=== PATIENT | female | born 1970 | race Two or more races ===

== ENCOUNTER 2024-10-14 14:40 | Inpatient (IN) ==
--- NOTE | 2024-10-14 15:01 | Emergency Department Note ---
History of Present Illness General Chief complaint: Infection, Wound Stated complaint: POSSIBLE STAPH INFECTION, WOUND ON FOOT Time Seen by Provider: 10/14/24 14:51 History of Present Illness Maximum Pain Intensity: 1 This is a 54-year-old female who presents to the emergency department via private vehicle referred by PCP with complaints of "right first toe infection". The patient is a Thursday she developed a wound to the dorsum of the left first toe and was seen at [facility]. She was prescribed Bactrim. She has been compliant with this medication. She then followed up in yesterday was prescribed clindamycin noting continuation of symptoms. She sent a picture to the team today and was referred here noting worsening symptoms. She feels fevers. No nausea or vomiting. She denies any known drug allergies. Patient denies any history of diabetes. She has been soaking the wound in water. She also notes that her dog may have licked the wound once or twice accidentally. She has been using Aleve and Benadryl with minimal relief of her symptoms. No known trauma or injury. Home Medications Medication Instructions Recorded Confirmed Type Lactobacillus acidophilus 10 10,000 mmu cells PO DAILY 10/14/24 10/14/24 History billion cell capsule (Probiotic) bupropion HCl 150 mg tablet,12 hr 150 mg PO QAM 10/14/24 10/14/24 History sustained-release cetirizine 10 mg tablet (Zyrtec) 10 mg PO QAM 10/14/24 10/14/24 History citalopram 40 mg tablet 40 mg PO QAM 10/14/24 10/14/24 History clindamycin HCl 150 mg capsule 450 mg PO TID 10/14/24 10/14/24 History levothyroxine 150 mcg tablet 150 mcg PO DAILYBB 10/14/24 10/14/24 History methylphenidate HCl 54 mg 54 mg PO QAM 10/14/24 10/14/24 History tablet,extended release 24 hr sulfamethoxazole 800 1 tab PO AMHS 10/14/24 10/14/24 History mg-trimethoprim 160 mg tablet Allergies Allergy/AdvReac Type Severity Reaction Status Date / Time No Known Allergies Allergy Mild Unverified 10/14/24 16:31 Past Med/Surg History Problem List (Updated 10/14/24 @ 17:33 by Jag Palma PA-C) Cellulitis of left foot (Acute) Open wound of left great toe (Acute) Medical History (Updated 10/14/24 @ 17:33 by Jag Palma PA-C) IUD (intrauterine device) in place History of adenomatous polyp of colon Moderate episode of recurrent major depressive disorder Attention deficit disorder without hyperactivity Hypothyroidism Family History (Updated 10/14/24 @ 16:54 by ÁNGEL Farah) Mother Hypertension Father Colorectal cancer Grandmother (Maternal) Diabetes Grandmother (Paternal) Breast cancer Social History (Updated 10/14/24 @ 16:55 by ÁNGEL Farah) Smoking Status: Former smoker Tobacco Type: Cigarettes packs per day: 1; Smoking End Date: 1996; Do You Dip or Chew Tobacco: No; Hx Alcohol Use: Yes Hx Substance Use: No Preferred Language: Japanese Feels Safe at Home: Yes Review of Systems A total of 10 systems reviewed and were otherwise negative Physical Exam Vital Signs Vital Signs - 24 hr 10/14/24 14:47 10/14/24 15:13 10/14/24 15:13 Temperature 37.2 C Temperature Source Oral Pulse Rate 115 H Respiratory Rate 20 Respiratory Effort / Characteristics Non-Labored Spontaneous Respiratory Depth Normal Blood Pressure 151/106 H 125/87 125/87 Blood Pressure Mean 121 90 90 Pulse Oximetry 95 Oxygen Delivery Method Room Air Sepsis Recent Fever Within 48 Hours Yes Sepsis New/Unexplained Change in Mental Status No Sepsis Action Taken by Nursing No Action Required 10/14/24 15:24 10/14/24 15:30 10/14/24 15:30 Temperature Temperature Source Pulse Rate 98 H Respiratory Rate 21 Respiratory Effort / Characteristics Respiratory Depth Blood Pressure 141/91 H 141/91 H Blood Pressure Mean 116 116 Pulse Oximetry 93 Oxygen Delivery Method Sepsis Recent Fever Within 48 Hours Sepsis New/Unexplained Change in Mental Status Sepsis Action Taken by Nursing 10/14/24 15:30 10/14/24 15:48 10/14/24 15:51 Temperature Temperature Source Pulse Rate 100 H 101 H 104 H Respiratory Rate 31 H 23 32 H Respiratory Effort / Characteristics Respiratory Depth Blood Pressure Blood Pressure Mean Pulse Oximetry 94 94 94 Oxygen Delivery Method Sepsis Recent Fever Within 48 Hours Sepsis New/Unexplained Change in Mental Status Sepsis Action Taken by Nursing 10/14/24 15:52 10/14/24 16:09 10/14/24 16:12 Temperature Temperature Source Pulse Rate 103 H 95 H 98 H Respiratory Rate 23 27 H Respiratory Effort / Characteristics Respiratory Depth Blood Pressure Blood Pressure Mean Pulse Oximetry 95 94 Oxygen Delivery Method Sepsis Recent Fever Within 48 Hours Sepsis New/Unexplained Change in Mental Status Sepsis Action Taken by Nursing 10/14/24 16:21 10/14/24 16:27 10/14/24 16:30 Temperature Temperature Source Pulse Rate 97 H 97 H Respiratory Rate 17 29 H Respiratory Effort / Characteristics Respiratory Depth Blood Pressure 140/88 Blood Pressure Mean 103 Pulse Oximetry 95 96 Oxygen Delivery Method Sepsis Recent Fever Within 48 Hours Sepsis New/Unexplained Change in Mental Status Sepsis Action Taken by Nursing 10/14/24 16:36 10/14/24 16:51 10/14/24 16:57 Temperature Temperature Source Pulse Rate 93 H 93 H 95 H Respiratory Rate 19 26 H 26 H Respiratory Effort / Characteristics Respiratory Depth Blood Pressure Blood Pressure Mean Pulse Oximetry 96 98 98 Oxygen Delivery Method Sepsis Recent Fever Within 48 Hours Sepsis New/Unexplained Change in Mental Status Sepsis Action Taken by Nursing 10/14/24 17:00 Temperature Temperature Source Pulse Rate Respiratory Rate Respiratory Effort / Characteristics Respiratory Depth Blood Pressure 122/88 Blood Pressure Mean 106 Pulse Oximetry Oxygen Delivery Method Sepsis Recent Fever Within 48 Hours Sepsis New/Unexplained Change in Mental Status Sepsis Action Taken by Nursing VITAL SIGNS - Vital signs and nursing notes were reviewed. Tachycardic, otherwise stable and afebrile. GENERAL - 54-year-old female appearing her stated age who is in no acute distress. Communicates well with provider and answers questions appropriately. SKIN -overlying the dorsum of the left first proximal toe there is an area of open integuments with underlying purulence with surrounding erythema and edema tracking to the dorsal foot region. HEAD - NC/AT. EYES - Sclera anicteric. NECK - No nuchal rigidity. LUNGS - CTA CARDIAC - RRR EXTREMITIES - No clubbing or peripheral cyanosis. Skin as above. Left dorsalis pedis pulse within normal limits. Cap refill of all toes within normal limits. +5/5 strength noted in UE/LE bilaterally. NEUROLOGIC - Cranial nerves II through XII grossly intact. PSYCH -alert, oriented and pleasant on exam Course Administered Medications Discontinued Medications Sodium Chloride (Nss) 1,000 mls @ 999 mls/hr IV .Q1H1M ONE Stop: 10/14/24 16:03 Last Admin: 10/14/24 16:36 Dose: 999 mls/hr Documented By: BERNARD Daptomycin 500 mg/ Syringe 10 mls @ 5 mls/min IV NOW ONE; Protocol Stop: 10/14/24 15:25 Last Admin: 10/14/24 16:36 Dose: 5 mls/min Documented By: BERNARD Ampicillin Sodium/Sulbactam Sodium (Unasyn) 3,000 mg in 100 mls @ 200 mls/hr IV NOW STA Stop: 10/14/24 16:29 Last Admin: 10/14/24 17:15 Dose: 200 mls/hr Documented By: RON Medical Decision Making Laboratory Data 10/14/24 16:38 10/14/24 15:16 Lab Results 10/14/24 10/14/24 10/14/24 Range/Units 15:16 16:02 16:38 WBC Cancelled 10.55 RBC Cancelled 4.62 Hgb Cancelled 12.9 Hct Cancelled 39.8 MCV Cancelled 86.1 MCH Cancelled 27.9 MCHC Cancelled 32.4 RDW Std Deviation Cancelled 43.6 RDW Coeff of Blank Cancelled 14.0 Plt Count Cancelled 267 MPV Cancelled 9.8 Immature Gran % (Auto) Cancelled 0.5 Neut % (Auto) Cancelled 80.0 Lymph % (Auto) Cancelled 10.2 Foster % (Auto) Cancelled 7.9 Eos % (Auto) Cancelled 0.9 Baso % (Auto) Cancelled 0.5 Neut # (Auto) Cancelled 8.45 H Lymph # (Auto) Cancelled 1.08 L Foster # (Auto) Cancelled 0.83 H Eos # (Auto) Cancelled 0.09 Baso # (Auto) Cancelled 0.05 Immature Gran # (Auto) Cancelled 0.05 Absolute Nucleated RBC Cancelled Nucleated RBC % (auto) Cancelled Neutrophils % (Manual) Cancelled Band Neutrophils % Cancelled Lymphocytes % (Manual) Cancelled Prolymphocyte % Cancelled Reactive Lymphs % (Man) Cancelled Monocytes % (Manual) Cancelled Eosinophils % (Manual) Cancelled Basophils % (Manual) Cancelled Metamyelocytes % (Man) Cancelled Myelocytes % (Man) Cancelled Promyelocytes % (Man) Cancelled Blast Cells % (Manual) Cancelled Plasma Cell % (Manual) Cancelled Other Cells % Cancelled Nucleated RBC % Cancelled Neutrophils # (Manual) Cancelled Band Neutrophils # Cancelled Total Absolute Neuts Cancelled Lymphocytes # (Manual) Cancelled Prolymphocyte # Cancelled Reactive Lymphs # Cancelled Total Abs Lymphocytes Cancelled Monocytes # (Manual) Cancelled Eosinophils # (Manual) Cancelled Basophils # (Manual) Cancelled Metamyelocytes # (Man) Cancelled Myelocytes # (Manual) Cancelled Promyelocytes # (Man) Cancelled Blast Cells # (Man) Cancelled Plasma Cell # (Manual) Cancelled Other Cells # Cancelled Nucleated RBCs # (Man) Cancelled Hypersegmented Neuts Cancelled Hyposegmented Neuts Cancelled Hypogranular Neuts Cancelled Large Granular Lymphs Cancelled # Lrg Granular Lymphs Cancelled Hairy Cells Cancelled Smudge Cells Cancelled Toxic Granulation Cancelled Toxic Vacuolation Cancelled Dohle Bodies Cancelled Janet Rods Cancelled Platelet Estimate Cancelled Hypogranular Platelets Cancelled Giant Platelets Cancelled Platelet Satelliting Cancelled RBC Morphology Cancelled Polychromasia Cancelled Hypochromasia Cancelled Poikilocytosis Cancelled Basophilic Stippling Cancelled Anisocytosis Cancelled Microcytosis Cancelled Macrocytosis Cancelled Spherocytes Cancelled Pappenheimer Bodies Cancelled Sickle Cells Cancelled Target Cells Cancelled Tear Drop Cells Cancelled Ovalocytes Cancelled Stomatocytes Cancelled [place] Bodies Cancelled Echinocytes Cancelled Acanthocytes (Spur) Cancelled Rouleaux Cancelled RBC Agglutinates Cancelled Schistocytes Cancelled ESR Cancelled 55 H Sezary Cell Cancelled Sodium 138 (136-145) mmol/L Potassium 4.1 (3.5-5.1) mmol/L Chloride 103 (98-107) mmol/L Carbon Dioxide 26 (21-32) mmol/L Anion Gap 9 (3-11) BUN 15 (6-23) mg/dl Creatinine 0.85 (0.6-1.2) mg/dl Est Cr Clr Drug Dosing 90.0 ml/min eGFR 80.86 BUN/Creatinine Ratio 17.6 (10-20) Glucose 94 (70-99(Fasting)) mg/dl Lactate Cancelled 1.1 Calcium 10.0 (8.6-10.3) mg/dl Total Bilirubin 0.6 (0.2-1.0) mg/dl AST 21 (13-39) U/L ALT 23 (7-52) U/L Alkaline Phosphatase 45 (34-104) U/L C-Reactive Protein 14.14 H (0-0.5) mg/dl Total Protein 8.3 (6.0-8.3) gm/dl Albumin 4.6 (3.4-5.0) gm/dl Globulin 3.7 (2.5-4.0) gm/dl Albumin/Globulin Ratio 1.2 (0.9-2) Procalcitonin 0.03 (0-0.5) ng/ml Blood Parasites ID Cancelled Imaging Data Radiologist's Impression: Foot X-Ray 10/14/24 15:01 XR foot LT min 3V routine CLINICAL HISTORY: Left foot infection at dorsal 1st MTP joint into foot COMPARISON: None FINDINGS: Alignment of the left foot is anatomic. Tarsometatarsal joints are intact. There are no fractures. No areas of bony erosion are identified. Note is made of extensive soft tissue swelling of the medial dorsal left forefoot, predominantly along the medial aspect of the first digit. No radiopaque foreign bodies are present. IMPRESSION: 1. No fractures within the left foot. No radiographic evidence for osteomyelitis. 2. Medial left forefoot soft tissue swelling. No radiopaque foreign bodies. ACT 112: Negative or not required by law. Electronically signed by: Akira Jackson M.D. 10/14/2024 3:48 PM MDM Narrative Patient was seen and evaluated as above in room B08. Review was performed of triage nursing notes and vital signs. After obtaining a thorough history and physical examination the above work up was performed. Patient presents to us today for evaluation of an infection that began at the dorsum of the left first toe but now has spread into the foot. The patient is tachycardic on arrival but otherwise yields stable vital signs. She is not hypotensive. Options of care were discussed with the patient. IV access was established. Labs were drawn. I did discuss risk factors for infection with the patient. Since the wound has developed the patient notes that although the patient has tried to keep the animals away as much as possible, her dog likely licked the wound once or twice. She has also been soaking the wounds in water. I will cover with daptomycin as there is MRSA identified on previous culture dated 10/11/2024. I did order IV daptomycin for the patient, based on adjusted body weight and rounded per our protocol to 500 mg IV which did confirm with in-house pharmacy, I also ordered IV Unasyn as the patient did note that her dog did lick the wound once or twice and I also ordered IV fluids for the patient. I did review the outpatient wound culture dated 10/11/2024 which was resistant to erythromycin and oxacillin and susceptible to clindamycin, tetracycline, trimethoprim/sulfa and vancomycin. Patient was previously on Bactrim and now on clindamycin. X-ray was also performed and no bony erosion per my interpretation. I did obtain verbal consent and pictures were uploaded here to the EMR for wound tracking. I also obtained a repeat wound culture. I do believe that further evaluation and management in the inpatient setting is warranted. Case discussed with the hospitalist service, please refer to further documentation regarding her stay. GCS: 15 In the evaluation and treatment of this patient the following differential diagnoses were entertained: Cellulitis, necrotizing fasciitis, septic arthritis, among others Impression & Plan Open wound of left great toe, Cellulitis of left foot Discharge Plan Visit Data Chief Complaint: Infection, Wound Stated Complaint: POSSIBLE STAPH INFECTION, WOUND ON FOOT ED Provider: Juan Peacock ED Midlevel Provider: Jag Palma Discharge Problem: Open wound of left great toe, Cellulitis of left foot Patient Disposition: Admitted As Inpatient Condition: Good Forms Stand Alone Forms: [facility] Prescriptions Prescriptions: No Action levothyroxine 150 mcg tablet 150 mcg PO DAILYBB Rx Instructions: take on an empty stomach 30 minutes prior to breakfast and other meds methylphenidate HCl 54 mg tablet extended release 24hr 54 mg PO QAM citalopram 40 mg tablet 40 mg PO QAM sulfamethoxazole-trimethoprim 800-160 mg tablet 1 tab PO AMHS Rx Instructions: take until gone clindamycin HCl 150 mg capsule 450 mg PO TID Rx Instructions: start 10/13/24 and end 10/23/24 bupropion HCl 150 mg tablet sustained-release 12 hr 150 mg PO QAM cetirizine [Zyrtec] 10 mg Tablet 10 mg PO QAM Probiotic 10 billion cell Capsule 10,000 mmu cells PO DAILY Referrals Referrals: Herminia Caldera DO [Outside Practitioners] -
--- NOTE | 2024-10-14 15:50 | XRay Report ---
XR foot LT min 3V routine CLINICAL HISTORY: Left foot infection at dorsal 1st MTP joint into foot COMPARISON: None FINDINGS: Alignment of the left foot is anatomic. Tarsometatarsal joints are intact. There are no fr actures. No areas of bony erosion are identified. Note is made of extensive soft tissue swelling of t he medial dorsal left forefoot, predominantly along the medial aspect of the first digit. No radiopaq ue foreign bodies are present. IMPRESSION: 1. No fractures within the left foot. No radiographic evidence for osteomyelitis. 2. Medial left forefoot soft tissue swelling. No radiopaque foreign bodies. ACT 112: Negative or not required by law. Electronically signed by: Akira Jackson M.D. 10/14/2024 3:48 PM
[2024-10-14 15:51] LABS: Alanine Aminotransferase 23.0 U/L (7-52); Albumin Globulin Ratio 1.2 (0.9-2); Alkaline Phosphatase 45.0 U/L (34-104); Anion Gap 9.0 (3-11); Bilirubin,Total 0.6 mg/dl (0.2-1.0); Blood Urea Nitrogen 15.0 mg/dl (6-23); Calcium 10.0 mg/dl (8.6-10.3); Carbon Dioxide 26.0 mmol/L (21-32); Chloride 103.0 mmol/L (98-107); Creatinine Clr Calc Pharmacy 90.0 ml/min; Globulin 3.7 gm/dl (2.5-4.0); Glucose 94.0 mg/dl (70-99(Fasting)); Potassium 4.1 mmol/L (3.5-5.1); Sodium 138.0 mmol/L (136-145); Total Protein 8.3 gm/dl (6.0-8.3)
[2024-10-14] MEDS: DAPTOmycin 500 MG in SYRINGE 0 ML IV ONE (16:36)
[2024-10-14] MEDS: SODIUM CHLORIDE 0.9% 1,000 ML IV ONE (16:36)
--- NOTE | 2024-10-14 16:48 | History & Physical Report ---
Date of Service October 14, 2024 Assessment & Plan (1) Open wound of left great toe: (2) Cellulitis of left foot: (3) Hypothyroidism: (4) Attention deficit disorder without hyperactivity: (5) Moderate episode of recurrent major depressive disorder: Plan 54 year old female with PMH significant for hypothyroidism, depression, and ADHD who presented to the ED on 10/14/2024 with a left toe wound and left foot cellulitis and is being admitted for possible sepsis. Possible sepsis Patient presenting with open wound of left great toe and cellulitis of left foot Tachycardic 90-100s and intermittent tachypnea, but no leukocytosis or fevers, lactate normal Follow blood cultures IV antibiotics as below MIVF Open wound of left great toe Cellulitis of left foot Failed outpatient therapy with bactrim and clindamycin Labs revealed no leukocytosis, normal lactate, normal calcitonin but elevated ESR (55) and CRP (14) Foot x-ray without evidence of fracture or osteomyelitis with medial left forefoot soft tissue swelling MRI pending Received daptomycin and unasyn in the ED - unasyn added due to wound exposure to dog licking per ER providere Follow wound culture and blood cultures Continue daptomycin and unasyn Surgery consult: appreciate recs Ortho surg and podiatry consult: appreciate recs for possible I&D A1C in am given nonhealing toe wound Hypothyroidism Continue levothyroxine ADHD Continue methylphenidate Depression Continue bupropion and citalopram DVT Prophylaxis: SCDs Code Status: FULL CODE - As per discussion at bedside with the patient. PCP: Martha Felix Disposition: admit to med surg Patient seen in collaboration with Dr Adorno. Please see addendum. I spent a total of 70 minutes coordinating, documenting and providing care for this patient excluding time spent in the performance of separately billed services or time spent by another provider/QHP. Admission and Anticipated Discharge Date Admission Date: 10/14/2024 History of Present Illness Chief Complaint: toe infection Primary Care Provider: Martha Felix, 54 year old female with PMH significant for hypothyroidism, depression, and ADHD who presented to the ED on 10/14/2024 with a left toe wound. Patient reports that she got a bug bite on Thursday evening that initially had a white head. She attempted to pop the bug bite with a pimple popper but was unsuccessful. Then the white head turned brown and started to swell and get warm. She was seen in Family Practice on Thursday where she was prescribed bactrim and a wound culture was obtained which revealed MRSA. The wound continued to worsen and at a follow up appointment yesterday she was also prescribed clindamycin. This morning, she noted no improvement in the wound and sent a picture to her PCP who recommended she seek evaluation in our ED. She denies fevers, chills, chest pain, SOB, abdominal pain, vomiting, diarrhea, dysuria, weakness. She notes nausea but attributes that to the oral antibiotics. Allergies Allergy/AdvReac Type Severity Reaction Status Date / Time No Known Allergies Allergy Mild Unverified 10/14/24 16:31 Home Medications Medication Instructions Recorded Confirmed Type Lactobacillus acidophilus 10 10,000 mmu cells PO DAILY 10/14/24 10/14/24 History billion cell capsule (Probiotic) bupropion HCl 150 mg tablet,12 hr 150 mg PO QAM 10/14/24 10/14/24 History sustained-release cetirizine 10 mg tablet (Zyrtec) 10 mg PO QAM 10/14/24 10/14/24 History citalopram 40 mg tablet 40 mg PO QAM 10/14/24 10/14/24 History clindamycin HCl 150 mg capsule 450 mg PO TID 10/14/24 10/14/24 History levothyroxine 150 mcg tablet 150 mcg PO DAILYBB 10/14/24 10/14/24 History methylphenidate HCl 54 mg 54 mg PO QAM 10/14/24 10/14/24 History tablet,extended release 24 hr sulfamethoxazole 800 1 tab PO AMHS 10/14/24 10/14/24 History mg-trimethoprim 160 mg tablet Past Med/Surg History Problem List (Updated 10/14/24 @ 17:33 by Jag Palma PA-C) Cellulitis of left foot (Acute) Open wound of left great toe (Acute) Medical History (Updated 10/14/24 @ 17:33 by Jag Palma PA-C) IUD (intrauterine device) in place History of adenomatous polyp of colon Moderate episode of recurrent major depressive disorder Attention deficit disorder without hyperactivity Hypothyroidism Family History (Updated 10/14/24 @ 16:54 by ÁNGEL Farah) Mother Hypertension Father Colorectal cancer Grandmother (Maternal) Diabetes Grandmother (Paternal) Breast cancer Social History (Updated 10/14/24 @ 16:55 by ÁNGEL Farah) Smoking Status: Former smoker Tobacco Type: Cigarettes packs per day: 1; Smoking End Date: 1996; Do You Dip or Chew Tobacco: No; Hx Alcohol Use: Yes Hx Substance Use: No Preferred Language: Sinhala Feels Safe at Home: Yes Review of Systems Review of Systems: All systems reviewed & are unremarkable except as noted in HPI & below Physical Exam Physical Exam: General/Psych: WD/WN, sitting up in bed, NAD, conversing easily, euthymic affect Head: normocephalic, atraumatic Eyes: normal inspection, PERRL, conjunctivae pink, anicteric sclerae ENT: external ear and nose normal, oropharynx normal Neck: normal visual inspection, trachea midline, no thyromegaly Respiratory: normal respiratory effort, lungs clear to auscultation, no wheeze/rales/rhonchi, no accessory muscle use Cardiovascular: regular rate and rhythm, no murmur/rub/gallop, no JVD Extremities: no cyanosis or clubbing, normal peripheral pulses, no BLE edema Abdomen/GI: normal bowel sounds, soft, nontender, no hepatosplenomegaly Neurologic/MSK: A+Ox3, CN's II-XI intact bilaterally, motor strength 5/5, moves all extremities Skin: no rashes, normal color, warm and dry; see picture of toe wound in ER visit note by aJg Palma Results & Data Results & Data Vital Signs (Past 12 Hours) Vital Signs Temp Pulse Resp BP Pulse Ox O2 Del Method 10/14/24 15:52 103 H 10/14/24 14:47 37.2 C 115 H 20 151/106 H 95 Room Air Laboratory Results Short CBC 10/14/24 10/14/24 Range/Units 15:16 16:38 WBC Cancelled 10.55 Hgb Cancelled 12.9 Hct Cancelled 39.8 Plt Count Cancelled 267 BMP 10/14/24 15:16 Sodium 138 Potassium 4.1 Chloride 103 Carbon Dioxide 26 BUN 15 Creatinine 0.85 Glucose 94 Calcium 10.0 Liver Function 10/14/24 Range/Units 15:16 Total Bilirubin 0.6 (0.2-1.0) mg/dl AST 21 (13-39) U/L ALT 23 (7-52) U/L Alkaline Phosphatase 45 (34-104) U/L Albumin 4.6 (3.4-5.0) gm/dl I have independently reviewed and interpreted patient's admitting labs including CBC and CMP Diagnostic Findings Foot X-Ray 10/14/24 15:01 XR foot LT min 3V routine CLINICAL HISTORY: Left foot infection at dorsal 1st MTP joint into foot COMPARISON: None FINDINGS: Alignment of the left foot is anatomic. Tarsometatarsal joints are intact. There are no fractures. No areas of bony erosion are identified. Note is made of extensive soft tissue swelling of the medial dorsal left forefoot, predominantly along the medial aspect of the first digit. No radiopaque foreign bodies are present. IMPRESSION: 1. No fractures within the left foot. No radiographic evidence for osteomyelitis. 2. Medial left forefoot soft tissue swelling. No radiopaque foreign bodies. ACT 112: Negative or not required by law. Electronically signed by: Akira Jackson M.D. 10/14/2024 3:48 PM Code Status & VTE Plan Code Status Full Code Supervising Physician Co-Signing Physician Notes Attending Addendum: Case reviewed with the advanced practitioner. I have personally performed a history and physical examination on the patient. I have reviewed the advanced practitioner's documentation on the date of service referenced in note, and I agree with, and take responsibility for the plan of care. please refer to her notes for full details patient seen and examined, records reviewed by myself as well on exam, patient seen resting in bed, comfortable, not in distress Very pleasant Reports mild discomfort over the left great toe and foot Has occasional fevers and chills at home no other symptoms VS noted and reviewed oriented x 3 , not in distress, speaks in sentences with no effort nor accessory muscle use normal rate, regular rhythm, no murmurs clear breath sounds bilaterally non distended, soft, nontender Left foot: Open wound with purulent yellow drainage at the base of the left great toe, with mild edema, erythema, warmth of the whole foot no neuro deficits all labs, imaging noted and reviewed ASSESSMENT AND PLAN> Infected open wound, left great toe, cellulitis Possible sepsis started 1 week ago as an insect bite No improvement with Bactrim, clindamycin Patient reports wound may have been accidentally licked by her pet dog foot x-ray: No signs of osteomyelitis Wound culture, blood cultures obtained foot MRI ordered to rule out osteomyelitis given severity of presentation Empiric daptomycin plus Unasyn given exposure to dog saliva General Surgery consulted for possible I&D other diagnoses and plan of care as per advanced practitioner's notes I spent a total of 40 minutes coordinating, documenting, and providing care for this patient, excluding time spent in the performance of separately billed serv ices or time spent by another provider/QHP. Servando Adorno MD
[2024-10-14 16:49] LABS: Hematocrit (blood only) 39.8 % (37.0-47.0); Hemoglobin 12.9 g/dl (12.0-16.0); Immature Granulocytes # (auto) 0.05 K/uL (0.01-0.20); Immature Granulocytes % (auto) 0.5 %; Mean Corpuscular Hemoglobin 27.9 pg (25.0-34.0); Mean Corpuscular Volume 86.1 fL (80.0-100.0); Platelet Count 267 K/uL (130-400); RDW Standard Deviation 43.6 fL (36.4-46.3); Red Blood Count 4.62 M/uL (4.20-5.40); White Blood Count 10.55 K/ul (4.8-10.8)
[2024-10-14] MEDS: AMPICILLIN/SULBACTAM SOD 3,000 MG/100 ML BAG IV STA (17:15)
[2024-10-14] MEDS ORDERED: ONDANSETRON INJ 2 MG/ML 2 ML VIAL IV PRN (20:47)
[2024-10-14] MEDS: SODIUM CHLORIDE 0.9% 1,000 ML IV SCH (21:12)
[2024-10-14] MEDS: ACETAMINOPHEN 325 MG TAB PO PRN (23:40)
[2024-10-14] MEDS: AMPICILLIN/SULBACTAM SOD 3,000 MG/100 ML BAG IV SCH (23:40)
--- NOTE | 2024-10-15 01:11 | Magnetic Resonance Report ---
Exam(s): MRI LEFT FOOT Without Contrast EXAM: MR Left Lower Extremity Without Intravenous Contrast, Foot CLINICAL HISTORY: Reason for exam: nonhealing toe wound with cellulitis. TECHNIQUE: Multiplanar magnetic resonance images of the left foot without intravenous contrast. COMPARISON: Left foot radiographs 10/14/2024 FINDINGS: There is diffuse dorsal subcutaneous edema suggesting cellulitis. There is ulceration of the soft tissues dorsal to the 1st proximal phalanx, with shallow fluid-filled sinus tract not extending to bone. There are no characteristic bone marrow signal changes of acute osteomyelitis. There are no significant joint effusions, and there is no evidence of septic arthritis. There is mild osteoarthritis of the 1st MTP joint with reactive subchondral marrow edema in the 1st metatarsal head. There is no acute fracture or dislocation. Visualized flexor and extensor tendons appear intact. Intrinsic muscles of the foot appear normal. IMPRESSION: 1. No evidence of osteomyelitis. 2. Diffuse dorsal cellulitis. 3. Soft tissue ulcer dorsal to the 1st proximal phalanx with shallow, fluid-filled sinus tract, not extending to bone. Electronically signed by: Castillo Hernández M.D. 10/15/24 01:10 AM
[2024-10-15] MEDS: LEVOTHYROXINE SODIUM 150 MCG TABLET PO SCH (05:21)
[2024-10-15 06:28] LABS: Hematocrit (blood only) 35.8 % (37.0-47.0); Hemoglobin 11.2 g/dl (12.0-16.0); Immature Granulocytes # (auto) 0.03 K/uL (0.01-0.20); Immature Granulocytes % (auto) 0.5 %; Mean Corpuscular Hemoglobin 27.5 pg (25.0-34.0); Mean Corpuscular Volume 88.0 fL (80.0-100.0); Platelet Count 236 K/uL (130-400); RDW Standard Deviation 45.5 fL (36.4-46.3); Red Blood Count 4.07 M/uL (4.20-5.40); White Blood Count 6.57 K/ul (4.8-10.8)
[2024-10-15 06:48] LABS: Anion Gap 5.0 (3-11); Blood Urea Nitrogen 11.0 mg/dl (6-23); Calcium 8.2 mg/dl (8.6-10.3); Carbon Dioxide 28.0 mmol/L (21-32); Chloride 108.0 mmol/L (98-107); Creatine Kinase 83.0 U/L (26-192); Creatinine Clr Calc Pharmacy 94.6 ml/min; Glucose 92.0 mg/dl (70-99(Fasting)); Potassium 4.2 mmol/L (3.5-5.1); Sodium 141.0 mmol/L (136-145)
[2024-10-15 07:50] LABS: Hemoglobin A1C 5.6 % (4.5-5.6)
[2024-10-15] MEDS: ADVANCED PROBIOTIC 625 MG CAPSULE PO SCH (07:56)
[2024-10-15] MEDS: CETIRIZINE HCL 10 MG TABLET PO SCH (07:56)
[2024-10-15] MEDS: CITALOPRAM 40 MG TAB PO SCH (07:56)
--- NOTE | 2024-10-15 08:52 | Orthopedic Consultation ---
Date of Consultation October 15, 2024 Assessment & Plan (1) Open wound of left great toe: (2) Cellulitis of left foot: Plan 54-year-old female admitted for wound to her left foot. I do long discussion the patient regarding her current presentation. We discussed in great detail the pathoanatomy, pathophysiology, treatment options. The patient is currently receiving IV antibiotics which I agree with. Patient has also had imaging which does not demonstrate any signs of osteomyelitis at this time. On the patient's MRI, she does have T2 hyperintensity within the soft tissues superficially of her left foot, and I suspect this is the reason for her continued redness and swelling. My recommendation for the patient at current is for a bedside irrigation and debridement considering the patient has already eaten breakfast today. I do think that this may require operative i rrigation and debridement, but the patient would like to try everything to avoid surgery if able. Please see separate procedure note for full details, but we did perform a bedside irrigation and debridement of the patient's left great toe this morning. I expressed to the patient that in the more controlled environment of the operating room, I do think that we would be better able to appropriately debride this wound to ensure that we release all contained purulence. I explained to the patient that if the bedside irrigation debridement that we performed today is helpful, we can potentially continue to watch this, however I would like to check back in tomorrow to determine if the patient's infection is responding to our bedside treatment. Please keep the patient n.p.o. after midnight tonight for potential operative intervention tomorrow Continue IV antibiotics Trend CRP moving forward History of Present Illness Reason for Consultation: Left great toe wound Attending Physician: Finesse Ozuna MD History of Present Illness 54 year old female with PMH significant for hypothyroidism, depression, and ADHD who presented to the ED on 10/14/2024 with a left toe wound. Patient reports that she got a bug bite last Thursday evening that initially had a white head. She attempted to pop the bug bite with a pimple popper but was unsuccessful. Then the white head turned brown and started to swell and get warm. She was seen in Family Practice on Thursday where she was prescribed bactrim and a wound culture was obtained which revealed MRSA. The wound continued to worsen and at a follow up appointment she was also prescribed clindamycin. Yesterday morning, she noted no improvement in the wound and sent a picture to her PCP who recommended she seek evaluation in our ED. She denies fevers, chills, chest pain, SOB, abdominal pain, vomiting, diarrhea, dysuria, weakness. She notes nausea but attributes that to the oral antibiotics. Since being admitted, the patient notes that her wound has improved. She denies any feelings of malaise, fevers or chills. She notes that the swelling has gone down significantly. Allergies Allergy/AdvReac Type Severity Reaction Status Date / Time No Known Allergies Allergy Mild Unverified 10/14/24 16:31 Home Medications Medication Instructions Recorded Confirmed Type Lactobacillus acidophilus 10 10,000 mmu cells PO DAILY 10/14/24 10/14/24 History billion cell capsule (Probiotic) bupropion HCl 150 mg tablet,12 hr 150 mg PO QAM 10/14/24 10/14/24 History sustained-release cetirizine 10 mg tablet (Zyrtec) 10 mg PO QAM 10/14/24 10/14/24 History citalopram 40 mg tablet 40 mg PO QAM 10/14/24 10/14/24 History clindamycin HCl 150 mg capsule 450 mg PO TID 10/14/24 10/14/24 History levothyroxine 150 mcg tablet 150 mcg PO DAILYBB 10/14/24 10/14/24 History methylphenidate HCl 54 mg 54 mg PO QAM 10/14/24 10/14/24 History tablet,extended release 24 hr sulfamethoxazole 800 1 tab PO AMHS 10/14/24 10/14/24 History mg-trimethoprim 160 mg tablet Patient History Medical History (Updated 10/14/24 @ 17:33 by Jag Palma PA-C) IUD (intrauterine device) in place History of adenomatous polyp of colon Moderate episode of recurrent major depressive disorder Attention deficit disorder without hyperactivity Hypothyroidism Family History (Updated 10/14/24 @ 16:54 by ÁNGEL Farah) Mother Hypertension Father Colorectal cancer Grandmother (Maternal) Diabetes Grandmother (Paternal) Breast cancer Social History (Updated 10/14/24 @ 16:55 by ÁNGEL Farah) Smoking Status: Former smoker Tobacco Type: Cigarettes packs per day: 1; Do You Dip or Chew Tobacco: No; Hx Alcohol Use: Yes Hx Substance Use: No Preferred Language: Cymraes Communication Ability: Effective Airline Transport Pilot Required: No Beliefs That Will Affect Care: None Current Living Situation: Other Current Living Situation Comment: with son Feels Safe at Home: Yes Assistive Devices: Glasses Review of Systems Review of Systems: All systems reviewed & are unremarkable except as noted in HPI & below Physical Exam Physical Exam: On physical examination of the patient's left great toe, she has a significant area of erythema with excoriated skin at the level of the proximal phalanx of the great toe. There is surrounding erythema. There is some fluctuance just proximal to this that appears superficial. Results & Data Vital Signs (Past 12 Hours) Vital Signs Temp Pulse Resp BP Pulse Ox O2 Del Method 10/15/24 07:02 36.6 C 76 16 99/66 L 94 Room Air Diagnostic Findings White blood cell count on admission: 10.55 ESR on admission: 55 CRP on admission: 14.14 X-rays of the patient's left foot and MRI of the patient's left foot were personally interpreted and reviewed. These demonstrate a dorsal wound without evidence of osteomyelitis. On the MRI, this does appear to be a superficial abscess/fluid collection.
--- NOTE | 2024-10-15 09:03 | Procedure Note ---
Procedure Note Date of Service October 15, 2024 Note Left foot irrigation and debridement procedure note Surgeon: Reginald Al DO Preop diagnosis: Left foot wound Postop diagnosis: Left foot wound Procedure description: The patient's left foot was cleansed with a Betadine solution and then a probe was introduced into the left foot wound. This proved to the EHL tendon, however did not probe any deeper than that. It also probed proximally into a small pocket of purulence that was noted proximal to the wound, but dorsal to the MP joint and the EHL tendon. This pocket was thoroughly expressed and adhesions were broken up with use of hemostat. The wound was then washed again with Betadine solution and 1 L of sterile saline through the wound using both a piece of gauze to bluntly debride the wound and a syringe to direct the saline into the proximal pocket of purulence. the patients foot wound was dressed with Xeroform, 4 x 4's, Corry, Jb wrap. patient tolerated this procedure well Plan: Considering the patient is not floridly septic at this time, and she was eating breakfast upon my entering the hospital room and based on her wishes to avoid surgical management, we will see how the patient's foot responds to this bedside irrigation and debridement with a very low threshold to proceed to the operating room for formal irrigation and debridement tomorrow. Patient will be n.p.o. after midnight tonight and she has tentatively been placed on the surgical schedule for tomorrow Coding
--- NOTE | 2024-10-15 13:23 | Hospitalist Progress Note ---
Date of Service October 15, 2024 Assessment & Plan (1) Open wound of left great toe: (2) Cellulitis of left foot: (3) Hypothyroidism: (4) Attention deficit disorder without hyperactivity: (5) Moderate episode of recurrent major depressive disorder: Plan 54 year old female with PMH significant for hypothyroidism, depression, and ADHD who presented to the ED on 10/14/2024 with a left toe wound and left foot cellulitis and is being admitted for possible sepsis. Possible sepsis POA iso left foot cellulitis Patient presenting with open wound of left great toe and cellulitis of left foot At presentation: tachycardic 90-100s and intermittent tachypnea, but no leukocytosis or fevers, lactate normal Follow blood cultures, Lt foot cx w/ staph aureus IV antibiotics as below c/w ivf. Open wound of left great toe Cellulitis of left foot Failed outpatient therapy with bactrim and clindamycin Labs revealed no leukocytosis, normal lactate, normal calcitonin but elevated ESR (55) and CRP (14) Foot x-ray without evidence of fracture or osteomyelitis with medial left forefoot soft tissue swelling MRI Lt foot: No evidence of osteomyelitis. Diffuse dorsal cellulitis. Soft tissue ulcer dorsal to the 1st proximal phalanx with shallow, fluid-filled sinus tract, not extending to bone. A1c 5.6 Received daptomycin and Unasyn in the ED - unasyn added due to wound exposure to dog licking per ER provider Follow wound culture and blood cultures Continue daptomycin 10/14 and Unasyn 10/14. CPK 7 was 83, repeat cpk in 3-5 days. Ortho on board, s/p I and D Lt foot 10/15, possible operative debridement if w ound healing is not appropriate. Hypothyroidism: Continue levothyroxine ADHD: Continue methylphenidate Depression: Continue bupropion and citalopram DVT Prophylaxis: SCDs Code Status: FULL CODE PCP: Martha Felix Admission and Anticipated Discharge Date Admission Date: October 14, 2024 Subjective Patient was seen and examined at bedside. Patient was lying in bed, on room air, NAD, resting comfortably. Patient reports eating okay, moving bowels okay, denies any new medical issues. Physical Exam Physical Exam: General/Psych: WD/WN, NAD, conversing easily, euthymic affect Head: normocephalic, atraumatic Eyes: normal inspection, PERRL, conjunctivae pink, anicteric sclerae ENT: external ear and nose normal, oropharynx normal Neck: normal visual inspection, trachea midline, no thyromegaly Respiratory: normal respiratory effort, lungs clear to auscultation, no wheeze/rales/rhonchi, no accessory muscle use Cardiovascular: regular rate and rhythm, no murmur/rub/gallop, no JVD Extremities: no cyanosis or clubbing, normal peripheral pulses, no BLE edema Abdomen/GI: normal bowel sounds, soft, nontender, no hepatosplenomegaly Neurologic/MSK: A+Ox3, CN's II-XI intact bilaterally, motor strength 5/5, moves all extremities Skin: no rashes, normal color, warm and dry.Lt foot w/ dressing c/d/i, distal NV status wnl. Results & Data Results & Data Vital Signs (Past 12 Hours) Vital Signs Temp Pulse Resp BP Pulse Ox O2 Del Method 10/15/24 07:02 36.6 C 76 16 99/66 L 94 Room Air
[2024-10-15] MEDS: DAPTOmycin 500 MG in SYRINGE 0 ML IV SCH (15:58)
[2024-10-16 06:23] LABS: Hematocrit (blood only) 38.5 % (37.0-47.0); Hemoglobin 12.3 g/dl (12.0-16.0); Immature Granulocytes # (auto) 0.05 K/uL (0.01-0.20); Immature Granulocytes % (auto) 1.0 %; Mean Corpuscular Hemoglobin 28.1 pg (25.0-34.0); Mean Corpuscular Volume 87.9 fL (80.0-100.0); Platelet Count 265 K/uL (130-400); RDW Standard Deviation 44.6 fL (36.4-46.3); Red Blood Count 4.38 M/uL (4.20-5.40); White Blood Count 5.15 K/ul (4.8-10.8)
[2024-10-16 06:46] LABS: Anion Gap 7.0 (3-11); Blood Urea Nitrogen 9.0 mg/dl (6-23); Calcium 8.8 mg/dl (8.6-10.3); Carbon Dioxide 27.0 mmol/L (21-32); Chloride 108.0 mmol/L (98-107); Creatinine Clr Calc Pharmacy 105.0 ml/min; Glucose 97.0 mg/dl (70-99(Fasting)); Potassium 4.1 mmol/L (3.5-5.1); Sodium 142.0 mmol/L (136-145)
--- NOTE | 2024-10-16 10:09 | Orthopedic Progress Note ---
Date of Service October 16, 2024 Assessment & Plan (1) Open wound of left great toe: (2) Cellulitis of left foot: Plan 54-year-old female admitted for wound to her left foot. yesterday, we performed a bedside irrigation and debridement, however the patient failed to respond significantly overnight. Based on this, I do believe that most appropriate next step in care would be for operative irrigation and debridement. I had a long discussion the patient regarding the nature of this surgery. Discussed in great detail the risks and benefits. Risks include but are not limited to loss of life/limb, DVT, incomplete relief of pain, further future infection requiring repeat irrigation debridement versus amputation, iatrogenic injury to bone/nerve/tendon/vessel. I also discussed with her that we will attempt to use her current wound in order to extend the incision proxima lly to thoroughly debride the fluid collection, and due to this, the patient is at risk of poor wound healing at the site of her current wound as well as at the site of the extended incision. I expressed to her that our surgical plan would be for irrigation debridement of her toe wound with possible wound VAC placement if needed versus closure Moving forward, the patient may require further intervention for wound care. I did discuss this patient's case with Dr. Edel D.P.M. who is willing to see the patient for wound care as well. Surgical plan: Irrigation debridement left great toe wound with possible wound VAC placement. Admission and Anticipated Discharge Date Admission Date: October 14, 2024 Subjective patient reports she is doing well this morning. Continues to deny feelings of general malaise, fevers, chills. Review of Systems Review of Systems: Negative as otherwise stated above Physical Exam Physical Exam: On physical examination of the patient's left great toe, she has a significant area of erythema with excoriated skin at the level of the proximal phalanx of the great toe. There is surrounding erythema. There is some fluctuance just proximal to this that appears superficial. Results & Data Vital Signs (Past 12 Hours) Vital Signs Temp Pulse Resp BP Pulse Ox O2 Del Method 10/16/24 07:03 36.5 C 73 16 123/82 96 Room Air
[2024-10-16] MEDS ORDERED: PROPOFOL IV EMULSION 10 MG/ML 20 ML VIAL IV ONE (11:07)
[2024-10-16] MEDS ORDERED: ONDANSETRON INJ 2 MG/ML 2 ML VIAL ONE (11:07)
[2024-10-16] MEDS ORDERED: MIDAZOLAM HCL 1 MG/ML 2ML VIAL ONE (11:07)
[2024-10-16] MEDS ORDERED: DEXAMETHASONE SOD INJ 4 MG/ML VIAL ONE (11:07)
[2024-10-16] MEDS ORDERED: HYDROmorphone INJ 2 MG/ML SYR/VIAL ONE (12:04)
--- NOTE | 2024-10-16 12:22 | Hospitalist Progress Note ---
Date of Service October 16, 2024 Assessment & Plan (1) Open wound of left great toe: (2) Cellulitis of left foot: (3) Hypothyroidism: (4) Attention deficit disorder without hyperactivity: (5) Moderate episode of recurrent major depressive disorder: Plan 54 year old female with PMH significant for hypothyroidism, depression, and ADHD who presented to the ED on 10/14/2024 with a left toe wound and left foot cellulitis and is being admitted for possible sepsis. Possible sepsis POA iso left foot cellulitis Patient presenting with open wound of left great toe and cellulitis of left foot At presentation: tachycardic 90-100s and intermittent tachypnea, but no leukocytosis or fevers, lactate normal Follow blood cultures, Lt foot cx w/ MRSA IV antibiotics as below c/w ivf. Open wound of left great toe Cellulitis of left foot Failed outpatient therapy with bactrim and clindamycin Labs revealed no leukocytosis, normal lactate, normal calcitonin but elevated ESR (55) and CRP (14) Foot x-ray without evidence of fracture or osteomyelitis with medial left forefoot soft tissue swelling MRI Lt foot: No evidence of osteomyelitis. Diffuse dorsal cellulitis. Soft tissue ulcer dorsal to the 1st proximal phalanx with shallow, fluid-filled sinus tract, not extending to bone. A1c 5.6 Received daptomycin and Unasyn in the ED - unasyn added due to wound exposure to dog licking per ER provider Follow wound culture and blood cultures Continue daptomycin 10/14 and Unasyn 10/14. CPK 10/15 was 83, repeat cpk in 3-5 days. dc unasyn. Ortho on board, s/p I and D Lt foot 10/15, plan for operative debridement today. ID consult. Hypothyroidism: Continue levothyroxine ADHD: Continue methylphenidate Depression: Continue bupropion and citalopram DVT Prophylaxis: SCDs Code Status: FULL CODE PCP: Martha Felix Admission and Anticipated Discharge Date Admission Date: October 14, 2024 Subjective Patient was seen and examined at bedside. Patient was lying in bed, on room air, NAD, resting comfortably. Patient reports eating okay, moving bowels okay, denies any new medical issues. Physical Exam Physical Exam: General/Psych: WD/WN, NAD, conversing easily, euthymic affect Head: normocephalic, atraumatic Eyes: normal inspection, PERRL, conjunctivae pink, anicteric sclerae ENT: external ear and nose normal, oropharynx normal Neck: normal visual inspection, trachea midline, no thyromegaly Respiratory: normal respiratory effort, lungs clear to auscultation, no wheeze/rales/rhonchi, no accessory muscle use Cardiovascular: regular rate and rhythm, no murmur/rub/gallop, no JVD Extremities: no cyanosis or clubbing, normal peripheral pulses, no BLE edema Abdomen/GI: normal bowel sounds, soft, nontender, no hepatosplenomegaly Neurologic/MSK: A+Ox3, CN's II-XI intact bilaterally, motor strength 5/5, moves all extremities Skin: no rashes, normal color, warm and dry.Lt foot w/ dressing c/d/i, distal NV status wnl. Results & Data Results & Data Vital Signs (Past 12 Hours) Vital Signs Temp Pulse Resp BP Pulse Ox O2 Del Method 10/16/24 07:03 36.5 C 73 16 123/82 96 Room Air
--- NOTE | 2024-10-16 13:42 | Anesthesiology Consultation ---
Date of Service October 16, 2024 Assessment & Plan Chart Review Chart Review: Acceptable Risk for Surgery and Patient NOT seen in Pre Admission Testing Consults Requested none ASA ASA3 Proposed Anesthesia Anesthesia Type: General History Surgery Operation Date: 10/16/24 12:00 Proposed Procedures p Incision and Drainage Left Foot, Application of Wound Vac(Left) - Reginald Al DO Height/Weight Height: 5 ft 5 in Weight: 105.4 kg Allergies Allergy/AdvReac Type Severity Reaction Status Date / Time No Known Allergies Allergy Mild Unverified 10/14/24 16:31 Medications Home Medications Medication Instructions Recorded Confirmed Last Taken Lactobacillus acidophilus 10 10,000 mmu cells PO DAILY 10/14/24 10/14/24 10/14/24 billion cell capsule (Probiotic) bupropion HCl 150 mg tablet,12 hr 150 mg PO QAM 10/14/24 10/14/24 10/14/24 sustained-release cetirizine 10 mg tablet (Zyrtec) 10 mg PO QAM 10/14/24 10/14/24 10/14/24 citalopram 40 mg tablet 40 mg PO QAM 10/14/24 10/14/24 10/14/24 clindamycin HCl 150 mg capsule 450 mg PO TID 10/14/24 10/14/24 10/14/24 12:00 levothyroxine 150 mcg tablet 150 mcg PO DAILYBB 10/14/24 10/14/24 10/14/24 methylphenidate HCl 54 mg 54 mg PO QAM 10/14/24 10/14/24 10/14/24 tablet,extended release 24 hr sulfamethoxazole 800 1 tab PO AMHS 10/14/24 10/14/24 10/14/24 mg-trimethoprim 160 mg tablet am dose Active Medications Generic Name Dose Route Start Last Admin Trade Name Freq PRN Reason Stop Dose Admin Acetaminophen 650 mg 10/14/24 20:47 10/14/24 23:40 Acetaminophen 325 Mg Tab PO 11/13/24 20:46 650 mg Q4H PRN Administration pain/fever Bupropion HCl 150 mg 10/15/24 09:00 10/16/24 08:21 Bupropion Sr 150 Mg Tabcr PO 11/14/24 08:59 150 mg QAM FARHAD Administration Cetirizine HCl 10 mg 10/15/24 09:00 10/16/24 08:21 Cetirizine Hcl 10 Mg Tablet PO 11/14/24 08:59 10 mg QAM FARHAD Administration Citalopram Hydrobromide 40 mg 10/15/24 09:00 10/16/24 08:21 Citalopram 40 Mg Tab PO 11/14/24 08:59 40 mg QAM FARHAD Administration Daptomycin 500 mg/ Syringe 10 mls @ 5 mls/min 10/15/24 16:00 10/15/24 15:58 IV 10/22/24 15:59 5 mls/min Q24H FARHAD Administration Protocol Lactobacillus Acidophilus 1,250 mg 10/15/24 09:00 10/16/24 08:21 Advanced Probiotic 625 Mg Capsule PO 11/14/24 08:59 1,250 mg DAILY FARHAD Administration Levothyroxine Sodium 150 mcg 10/15/24 06:30 10/16/24 05:28 Levothyroxine Sodium 150 Mcg Tablet PO 11/14/24 06:29 150 mcg DAILYBB FARHAD Administration Miscellaneous 1 each 10/14/24 21:15 10/16/24 07:28 (Methylphenidate Hcl 54 Mg Tablet Extended Release 24hr)~Order Awaiting Action N/A 11/13/24 21:14 Not Given QS FARHAD Past Medical History Medical History IUD (intrauterine device) in place History of adenomatous polyp of colon Moderate episode of recurrent major depressive disorder Attention deficit disorder without hyperactivity Hypothyroidism morbid obesity Exercise / Class Metabolic Activity II 4-5 Yardwork/Stairs/Walk up hill Past Family History Family History Mother Hypertension Father Colorectal cancer Grandmother (Maternal) Diabetes Grandmother (Paternal) Breast cancer Past Anesthesia History No Hx of Anesthesia Complications and No Family Hx of Anesthesia Complications History of PONV No Hx of PONV and No Hx of Motion Sickness Social History Smoking Status: Former smoker Do You Dip or Chew Tobacco: No Smoking End Date: 1997 Hx Alcohol Use: Yes alcohol intake frequency: holidays/special occasions only Hx Substance Use: No substance use type: does not use Physical Exam Vital Signs Last Vital Signs Temp 36.5 C 10/16/24 07:03 Pulse 73 10/16/24 07:03 Resp 16 10/16/24 07:03 BP 123/82 10/16/24 07:03 Pulse Ox 96 10/16/24 07:03 O2 Del Method Room Air 10/16/24 07:03 Testing Laboratory Results 10/16/24 05:34 10/16/24 05:34 Hemoglobin A1c 5.6 % (4.5-5.6) 10/15/24 05:48 10/14/24 15:16 Gram Stain - Final Foot,Left Aerobic and Anaerobic Culture - Preliminary Staph aureus MRSA 10/14/24 15:16 Aerobic Blood Culture - Preliminary Blood No growth in Aerobic bottle after 24 hours. Anaerobic Blood Culture - Preliminary No growth in Anaerobic bottle after 24 hours. 10/14/24 15:16 Aerobic Blood Culture - Preliminary Blood No growth in Aerobic bottle after 24 hours. Anaerobic Blood Culture - Preliminary No growth in Anaerobic bottle after 24 hours.
[2024-10-16] MEDS ORDERED: ATROPINE SULFATE 0.1 MG/ML 10ML SYR IV PRN (14:58)
[2024-10-16] MEDS ORDERED: NALOXONE HCL 0.4 MG/1 ML VIAL/CARP IV PRN ×2 (14:58→16:18)
[2024-10-16] MEDS ORDERED: FLUMAZENIL 0.1 MG/1 ML 10 ML VIAL IV PRN (14:58)
[2024-10-16] MEDS ORDERED: PROMETHAZINE HCL 6.25 MG in SODIUM CHLORIDE 0.9% 50 ML IV PRN (14:58)
[2024-10-16] MEDS ORDERED: HYDROmorphone INJ 1 MG/ML SYRINGE IV PRN (14:58)
--- NOTE | 2024-10-16 15:00 | History & Physical Bridge Note ---
Date of Service October 16, 2024 History & Physical Bridge Note I have examined the patient, reviewed the History & Physical and in the interval since the performance of the History & Physical I have noted the following changes of clinical significance: 54-year-old female admitted for wound to her left foot. Yesterday, we performed a bedside irrigation and debridement, however the patient failed to respond significantly overnight. Based on this, I do believe that most appropriate next step in care would be for operative irrigation and debridement. I had a long discussion the patient regarding the nature of this surgery. Discussed in great detail the risks and benefits. Risks include but are not limited to loss of life/limb, DVT, incomplete relief of pain, further future infection requiring repeat irrigation debridement versus amputation, iatrogenic injury to bone/nerve/tendon/vessel. I also discussed with her that we will attempt to use her current wound in order to extend the incision proximally to thoroughly debride the fluid collection, and due to this, the patient is at risk of poor wound healing at the site of her current wound as well as at the site of the extended incision. I expressed to her that our surgical plan would be for irrigation debridement of her toe wound with possible wound VAC placement if needed versus closure Moving forward, the patient may require further intervention for wound care. I did discuss this patient's case with Unruly Burns.P.M. who is willing to see the patient for wound care as well. Surgical plan: Irrigation debridement left great toe wound with possible wound VAC placement.
[2024-10-16] MEDS ORDERED: ceFAZolin 330 MG/ML 1 GM VIAL ONE (15:25)
[2024-10-16] MEDS: VANCOMYCIN HCL 1000MG/20ML VIAL ONE (15:28)
--- NOTE | 2024-10-16 16:17 | Operative Report ---
Post Operative Report Pre & Post Diagnosis Operation Date: 10/16/24 12:00 Pre-Op Diagnosis: Open wound of left great toe Post-Op Diagnosis: Open wound of left great toe I identified the patient and participated in the time-out.: Yes Procedure Operation Date: 10/16/24 12:00 Actual Procedures p Incision and Drainage Left Great Toe(Left) - Reginald Al DO 1. Irrigation and debridement left great toe wound Surgeon Reginald Al DO [place] [facility] Jerson Yeung PA-C Estimated Blood Loss 5 Findings See Below significant purulence noted through the sinus tract that extended proximally from the original wound. Devitalized tissue all superficial to the EHL tendon sheath. No rents into the MTP joint. Specimens 1 specimen sent for culture (soft tissue, superficial left great toe) Anesthesia Type General Complications none immediately apparent Disposition Disposition: Recovery Room Indications 54-year-old female admitted for wound to her left foot. Yesterday, we performed a bedside irrigation and debridement, however the patient failed to respond significantly overnight. Based on this, I do believe that most appropriate next step in care would be for operative irrigation and debridement. I had a long discussion the patient regarding the nature of this surgery. Discussed in great detail the risks and benefits. Risks include but are not limited to loss of life/limb, DVT, incomplete relief of pain, further future infection requiring repeat irrigation debridement versus amputation, iatrogenic injury to bone/nerve/tendon/vessel. I also discussed with her that we will attempt to use her current wound in order to extend the incision proximally to thoroughly debride the fluid collection, and due to this, the patient is at risk of poor wound healing at the site of her current wound as well as at the site of the extended incision. I expressed to her that our surgical plan would be for irrigation debridement of her toe wound with possible wound VAC placement if needed versus closure Moving forward, the patient may require further intervention for wound care. I did discuss this patient's case with Unruly Burns.P.M. who is willing to see the patient for wound care as well. Surgical plan: Irrigation debridement left great toe wound with possible wound VAC placement. Description of Procedure after informed consent was obtained, the patient was correctly identified in the preoperative holding suite, the operative site was marked with the surgeon's initials, the date of surgery, and the word yes. The patient was then taken to the operative suite. The department of anesthesia administered general anesthesia. The patient was transferred from the [facility] to the operative table. All bony prominences were well-padded. Briefing and timeout was performed. All implants were available and sterile at the time. BRIEFING AND DEBRIEFING: Pre and post operative briefing and debriefing was performed. Introductions were made, goals of the procedure were discussed, questions and concerns were addressed. The operative site markings were identified and appropriate. A time [id number] was performed, the patient's correct identity was confirmed and the correct operative sites were identified. The patients pre-operative antibiotic dosing and administration was confirmed along with other SCIP measures. The team was polled at the completion of the surgery and all team members were in agreement that the procedure was without complication, the counts are correct, the wound c lass was identified and suggestions for improvement were shared. Patient was transferred in supine fashion from the [facility] to the operative table. All bony prominences well-padded. A well-padded tourniquet was placed onto the left calf. anesthesia was placed on the right lower extremity, bilateral upper extremities were placed on well-padded arm boards.The left lower extremity was prepped and draped in standard sterile fashion using iodine scrub and paint. Tourniquet was raised to 250 mmHg. It remained elevated for 40 minutes which proved to be the duration of the case. We examined the wound which measured approximately 1 cm in length and was centered over the MTP joint. We would take the lateral aspect of this wound and extend it distally and we would take the medial aspect of the wound and extend this proximally forming a "Z like" flap. We dissected bluntly through subcutaneous tissue and immediately encountered a pocket of purulence. At this point we collected soft tissue in this area which was sent to the lab for culture (a aerobic, anaerobic, AFB, fungal). we also at this time used hemostats to bluntly spread through the subcutaneous tissue opening all additional pockets. No additional pockets were noted. We also would incised the EHL tendon sheath and examined this which did not appear infected whatsoever. At this point we began our sharp debridement down to the level of the tendon sheath using knife, scissors, curettes, rongeur's. Once we were satisfied with our initial sharp debridement we would begin our irrigation. We started with 3 L of sterile saline mixed with 1 g of vancomycin and following the completion of this we once again sharply debrided any devitalized tissue in the wound. We then completed our irrigation using an additional 6 L of sterile saline mixed with 2 g of vancomycin and at this point we were satisfied with our irrigation debridement. Following the debridement of the patient's wound edges, there was healthy appearing skin and as such we felt as if primary closure was appropriate. We would use 5-0 nylon in vertical mattress fashion to reapproximate the skin edges. We then dressed the wound with B etadine soaked Adaptic, 4 x 4's fluffs, sterile Webril, Jb wrap. We placed the patient into a postoperative shoe. The patient tolerated this procedure well and was transferred to the PACU in stable condition. Prior to transportation to PACU, all counts were correct and a briefing was performed at the end of the case. Due to the complex nature of the procedure, the entire surgery was performed with the operational assistance of Jerson Yeung PA-C. The visitor service assistant, under direct supervision, was involved in the performance of all aspects of the surgical procedure including hemostasis, tissue retraction, instrument management, patient positioning and wound closure. I was present for the entire procedure. Plan: Weight bearing status: foot flat weightbearing left lower extremity Wound care: dressing will be changed in 2 days Range of motion: as tolerated of ankle, avoid range of motion of toes VTE Prophylaxis: okay from orthopedic standpoint Antibiotics: broad-spectrum per medicine Pain Control: Multimodal Discharge Plan: pending clinical course Consults: Recommend infectious disease consultation Follow-up: Patient will follow-up with myself in 2 weeks for wound check. I discussed the case with Dr. Hollingsworth as well and should the patient require wound care, he will see the patient in the future. I attest to the content of the Intraoperative Record and any orders documented therein. Any exceptions are noted below.
[2024-10-16] MEDS ORDERED: MAGNESIUM HYDROXIDE SUSP 30 ML UDC PO PRN (16:18)
[2024-10-16] MEDS ORDERED: HYDROmorphone INJ 0.5 MG/0.5 ML SYR IV PRN (16:18)
[2024-10-16] MEDS ORDERED: HYDROCODONE/ACETAMOPHEN 5/325MG TAB PO PRN (16:18)
[2024-10-16] MEDS ORDERED: ONDANSETRON INJ 2 MG/ML 2 ML VIAL IV PRN (16:18)
[2024-10-16] MEDS ORDERED: METOCLOPRAMIDE HCL INJ 5 MG/ML 2 ML VIAL IV PRN (16:18)
--- NOTE | 2024-10-16 16:58 | Anesthesiology Progress Note ---
Date of Service October 16, 2024 Anesthesia Post Procedure Vital Signs Vital Signs: Temp Pulse Pulse Pulse Resp BP Pulse Ox 10/16/24 16:57 36.6 C 80 16 123/83 91 10/16/24 16:45 36.5 C 76 17 130/89 97 10/16/24 16:35 76 14 129/90 97 10/16/24 16:25 81 17 128/93 99 10/16/24 16:19 36.1 C L 84 15 141/98 H 98 10/16/24 07:03 36.5 C 73 16 123/82 96 10/15/24 19:56 36.6 C 81 16 123/78 95 O2 Del Method O2 Flow Rate 10/16/24 16:57 Room Air 10/16/24 16:45 Nasal Cannula 2 10/16/24 16:35 Nasal Cannula 2 10/16/24 16:25 Nasal Cannula 2 10/16/24 16:19 Oxymask 10 10/16/24 07:03 Room Air 10/15/24 19:56 Room Air Pain Intensity Left Foot: Pain Intensity: 2 Transfer of Care Handoff Completed per policy Notes Mental Status: alert / awake / arousable Patient Amnestic to Procedure: Yes Nausea / Vomiting: adequately controlled Pain: adequately controlled Airway Patency, RR, SpO2: stable & adequate BP & HR: stable & adequate Hydration State: stable & adequate Anesthetic Complications: no major complications apparent
[2024-10-16] MEDS: SODIUM CHLORIDE 0.9% 1,000 ML IV SCH (16:59)
[2024-10-16] MEDS: DOCUSATE SODIUM 100 MG CAP PO SCH (20:15)
[2024-10-16] MEDS: SENNA 8.6 MG TAB PO SCH (20:16)
--- NOTE | 2024-10-17 10:10 | Orthopedic Progress Note ---
Date of Service October 17, 2024 Assessment & Plan (1) Open wound of left great toe: (2) Cellulitis of left foot: Plan Postoperative day 1 status post irrigation debridement of left great toe wound. Overall, patient is doing well. Her pain is well-controlled. Her intraoperative cultures have grown Staph aureus without sensitivities at this time. ID consult has been placed Patient currently on broad-spectrum antibiotics Plan for dressing change tomorrow CRP to be trended, labs still pending at this time. Heel weightbearing only left lower extremity Admission and Anticipated Discharge Date Admission Date: October 14, 2024 Subjective Patient was seen and examined postoperative day #1 status post irrigation debridement with closure of left toe wound. Patient was lying in bed, on room air, NAD, resting comfortably. Patient reports eating okay, moving bowels okay, denies any new medical issues. Review of Systems Review of Systems: All systems reviewed & are unremarkable except as noted in HPI & below Physical Exam 2 Physical Exam: Surgical dressings clean dry and intact. Erythema about the toe diminished from previous. Results & Data Vital Signs (Past 12 Hours) Vital Signs Temp Pulse Pulse Resp BP Pulse Ox O2 Del Method 10/17/24 08:17 36.5 C 69 16 121/82 95 Room Air 10/17/24 02:46 36.6 C 68 18 123/81 95 Room Air 10/16/24 23:18 36.7 C 78 16 115/75 94 Room Air Laboratory Results Preliminary cultures growing Staph aureus without sensitivities ESR/CRP ordered this morning not resulted.
[2024-10-17 10:46] LABS: Hematocrit (blood only) 39.6 % (37.0-47.0); Hemoglobin 13.1 g/dl (12.0-16.0); Mean Corpuscular Hemoglobin 28.3 pg (25.0-34.0); Mean Corpuscular Volume 85.5 fL (80.0-100.0); Platelet Count 336 K/uL (130-400); RDW Standard Deviation 41.4 fL (36.4-46.3); Red Blood Count 4.63 M/uL (4.20-5.40); White Blood Count 9.28 K/ul (4.8-10.8)
[2024-10-17 11:02] LABS: Anion Gap 10.0 (3-11); Blood Urea Nitrogen 13.0 mg/dl (6-23); Calcium 9.3 mg/dl (8.6-10.3); Carbon Dioxide 25.0 mmol/L (21-32); Chloride 105.0 mmol/L (98-107); Creatinine Clr Calc Pharmacy 99.5 ml/min; Glucose 154.0 mg/dl (70-99(Fasting)); Potassium 3.7 mmol/L (3.5-5.1); Sodium 140.0 mmol/L (136-145)
--- NOTE | 2024-10-17 11:50 | Infectious Disease Consult ---
Date of Consultation October 17, 2024 Assessment & Plan (1) MRSA (methicillin resistant Staphylococcus aureus) infection: (2) Cellulitis of left foot: (3) Open wound of left great toe: Plan ID Problem List: # MRSA SSTI and abscess of the L great toe/L foot Impression: Moy Winslow is a 54-year-old female with history of hypothyroidism, depression, and ADHD, who presented to [facility] on 10/14/2024 with left toe wound and SSTI with abscess, s/p bedside I&D on 10/15 with Cx + MRSA and s/p OR I&D on 10/16. ID is consulted for L great toe SSTI. The patient reports that she started having a whitish bubble on her L great toe on Sunday 10/08. She then attempted to pop this lesion with a pimple popper but was unsuccessful. The lesion turned brown, and became swollen and warm. She saw her PCP on Wednesday 10/11, her PCP popped it and took a wound Cx + MRSA; she was prescribed Bactrim. Her symptoms worsened and she developed an open wound in the toe on Thursday, and low-grade fevers to 99F and at a follow-up appointment on 10/13 she was prescribed clindamycin. She had some erythema in her foot but not past her ankle. She presented to the ED given continued worsening of her wound. No chills, nausea, vomiting, diarrhea, dysuria. In the ED, afebrile, WBC 10.55 Hgb 12.9 plt 267 Cr 0.85. ESR 55 CRP 14.14. 10/14 X-ray foot without fractures or e/o osteomyelitis. 10/14 MRI L foot without e/o osteomyelitis, showed soft tissue ulcer dorsal to 1st proximal phalanx with shallow, fluid- filled sinus tract, not extending to bone. She was started on daptomycin and Unasyn. Orthopedic surgery was consulted and she underwent bedside I&D of her L great toe on 10/15/24. On 10/16/24, the patient went to OR for I&D of the L great toe, OR findings with purulence; intraoperative vancomycin solution was used in the irrigation, and the wound was closed. 10/16 OR Cx growing Staph aureus. She reports that ~1 year ago, she had a boil on her R thigh that underwent bedside I&D, which also grew MRSA. Discussion The patient presents with an abscess on the L great toe, s/p bedside I&D on 10/15 and OR I&D on 10/16, with Cx + MRSA. Imaging and OR without e/o bony involvement. The patient is clinically stable, and has been afebrile with normal WBC count. Discussed with primary team and with Dr. Al of orthopedic surgery, and it was felt that source control was well-achieved in the OR on 10/16. Bedside I&D Cx from 10/15 grew MRSA and 10/16 OR I&D Cx are also growing Staph aureus. OR findings with significant purulence noted through the sinus tract that extended proximally from the original wound. Devitalized tissue all superficial to the EHL tendon sheath with the tendon itself not appearing infected. Can continue IV daptomycin while inpatient, and change to linezolid upon discharge to complete a 14-day course after I&D (favoring a somewhat longer course given proximity to tendons). Note that the patient had a MRSA boil of her R thigh ~1 year prior, and thus would suggest MRSA/Staph decolonization after completion of abx. Recommendations: - Continue IV daptomycin while inpatient. Upon discharge, can change to linezolid 600 mg PO BID to complete a 14-day course after I&D (10/1610/29/24) - Ensure close follow-up with PCP - F/u 10/14 BCx until finalized to ensure remains negative - Appreciate orthopedic surgery following, if clinical worsening may involve podiatry - Continue wound care - After completion of abx treatment as above, would recommend Staph/MRSA decolonization (see below for suggested protocol) Staph/MRSA decolonization protocol Perform decolonization of all household members simultaneously. (1) Nasal decolonization: mupirocin ointment (2%) - Apply twice a day to each nostril (each household member should have a separate one) for 5 days (2) Topical body decolonization: chlorhexidine gluconate (Hibiclens) (2% or 4% solution) washes - Wet body. Turn off water and put Hibiclens all over body from the neck down, with special attention to underarms and groin. Wait 3-5 minutes, then wash off Hibiclens. Do this daily for 5 days. - Bathroom: Daily Clorox bleach to shower/bathroom. - Gym: Ok to go to gym, but wash off equipment before and after use. Do not stay in sweaty clothes; immediately shower after exercise. Do not re-wear sweaty clothes. - Laundry: Wash towels/washcloths/sheets/underwear/sweaty clothes after each use in hot water and color-safe bleach. Do not share towels or washcloths. - Personal hygiene products: Throw out deodorant and razors now. Avoid loofahs. Only use razors for 1 week at a time. If you develop cellulitis (skin infection), get rid of deodorant and razors again. Plan discussed with primary team. Thank you for letting ID participate in the care of this patient. ID will sign off at this time. If questions, please contact the [facility] call center at [phone]. Candice Clark MD, S Infectious Diseases [facility] direct line: [phone] Consultation Information Consultation was provided via telemedicine using two-way real-time interactive telecommunication between the patient and the telemedicine provider. For the du ration of the visit, the provider was performing the assessment from a different facility than the patient. This includesuse of bluetooth stethoscope forauscultationperformed by the telepresenter that the telemedicine provider can hear if described in the physical exam. [employer] contact information: Please call [facility] Call Center [phone]. (Phone Number For Physician Use Only) After establishing a telemedicine visit, patient was: Patient was verified with two unique identifiers, Patient/authorized rep acknowledged consent and understanding and Gave permission to continue telehealth session Time Spent with Patient: Initial => 55 min History of Present Illness Reason for Consultation: L great toe SSTI with MRSA Attending Physician: Finesse Ozuna MD History of Present Illness Moy Winslow is a 54-year-old female with history of hypothyroidism, depression, and ADHD, who presented to [facility] on 10/14/2024 with left toe wound and SSTI with abscess, s/p bedside I&D on 10/15 with Cx + MRSA and s/p OR I&D on 10/16. ID is consulted for L great toe SSTI. The patient reports that she started having a whitish bubble on her L great toe on Sunday 10/08. She then attempted to pop this lesion with a pimple popper but was unsuccessful. The lesion turned brown, and became swollen and warm. She saw her PCP on Wednesday 10/11, her PCP popped it and took a wound Cx + MRSA; she was prescribed Bactrim. Her symptoms worsened and she developed an open wound in the toe on Thursday, and low-grade fevers to 99F and at a follow-up appointment on 10/13 she was prescribed clindamycin. She had some erythema in her foot but not past her ankle. She presented to the ED given continued worsening of her wound. No chills, nausea, vomiting, diarrhea, dysuria. In the ED, afebrile, WBC 10.55 Hgb 12.9 plt 267 Cr 0.85. ESR 55 CRP 14.14. 10/14 X-ray foot without fractures or e/o osteomyelitis. 10/14 MRI L foot without e/o osteomyelitis, showed soft tissue ulcer dorsal to 1st proximal phalanx with shallow, fluid- filled sinus tract, not extending to bone. She was started on daptomycin and Unasyn. Orthopedic surgery was consulted and she underwent bedside I&D of her L great toe on 10/15/24. On 10/16/24, the patient went to OR for I&D of the L great toe, OR findings with purulence; intraoperative vancomycin solution was used in the irrigation, and the wound was closed. 10/16 OR Cx growing Staph aureus. She reports that ~1 year ago, she had a boil on her R thigh that underwent bedside I&D, which also grew MRSA. Allergies Allergy/AdvReac Type Severity Reaction Status Date / Time No Known Allergies Allergy Mild Unverified 10/14/24 16:31 Home Medications Medication Instructions Recorded Confirmed Type Lactobacillus acidophilus 10 10,000 mmu cells PO DAILY 10/14/24 10/14/24 History billion cell capsule (Probiotic) bupropion HCl 150 mg tablet,12 hr 150 mg PO QAM 10/14/24 10/14/24 History sustained-release cetirizine 10 mg tablet (Zyrtec) 10 mg PO QAM 10/14/24 10/14/24 History citalopram 40 mg tablet 40 mg PO QAM 10/14/24 10/14/24 History clindamycin HCl 150 mg capsule 450 mg PO TID 10/14/24 10/14/24 History levothyroxine 150 mcg tablet 150 mcg PO DAILYBB 10/14/24 10/14/24 History methylphenidate HCl 54 mg 54 mg PO QAM 10/14/24 10/14/24 History tablet,extended release 24 hr sulfamethoxazole 800 1 tab PO AMHS 10/14/24 10/14/24 History mg-trimethoprim 160 mg tablet Patient History Medical History IUD (intrauterine device) in place History of adenomatous polyp of colon Moderate episode of recurrent major depressive disorder Attention deficit disorder without hyperactivity Hypothyroidism Family History Mother Hypertension Father Colorectal cancer Grandmother (Maternal) Diabetes Grandmother (Paternal) Breast cancer Social History (Updated 10/14/24 @ 16:55 by NÁGEL Farah) Smoking Status: Former smoker Tobacco Type: Cigarettes packs per day: 1; Do You Dip or Chew Tobacco: No; Hx Alcohol Use: Yes Hx Substance Use: No Preferred Language: [place] Communication Ability: Effective Evp Strategy Required: No Beliefs That Will Affect Care: None Current Living Situation: Other Current Living Situation Comment: with son Feels Safe at Home: Yes Assistive Devices: Glasses Physical Exam Physical Exam: Exam obtained with assistance of an in-person telepresenter General: Well-appearing, no acute distress HEENT: Conjunctivae non-injected, sclerae anicteric, MMM, OP clear. Resp: Respirations nonlabored. Ext: L foot in dressing; no erythema or swelling of visible distal toes or of ankle/shins noted. Skin: As above Neuro: Alert & interactive. Grossly non-focal. Psych: Pleasant, appropriate. Results & Data Vital Signs (Past 12 Hours) Vital Signs Temp Pulse Pulse Resp BP Pulse Ox O2 Del Method 10/17/24 08:17 36.5 C 69 16 121/82 95 Room Air 10/17/24 02:46 36.6 C 68 18 123/81 95 Room Air 10/16/24 23:18 36.7 C 78 16 115/75 94 Room Air Laboratory Results Diagnostics: 10/14 MRI L foot 1. No evidence of osteomyelitis. 2. Diffuse dorsal cellulitis. 3. Soft tissue ulcer dorsal to the 1st proximal phalanx with shallow, fluid-filled sinus tract, not extending to bone. 10/14 X-ray L foot 1. No fractures within the left foot. No radiographic evidence for osteomyelitis. 2. Medial left forefoot soft tissue swelling. No radiopaque foreign bodies. Micro Data: 10/16 L great toe (OR) Cx: Staph aureus 10/14 L foot (bedside I&D): MRSA (S-linezolid/Bactrim/tetracycline) 10/14 BCx x2: NGTD Antibiotic Summary: daptomycin (10/14 present) prior Unasyn (10/14 10/16) cefazolin (10/16) intraoperative vancomycin irrigation (10/16)
[2024-10-17 15:16] VITALS: RESP 16
--- NOTE | 2024-10-17 15:40 | Hospitalist Progress Note ---
Date of Service October 17, 2024 Assessment & Plan (1) Open wound of left great toe: (2) Cellulitis of left foot: (3) Hypothyroidism: (4) Attention deficit disorder without hyperactivity: (5) Moderate episode of recurrent major depressive disorder: Plan 54 year old female with PMH significant for hypothyroidism, depression, and ADHD who presented to the ED on 10/14/2024 with a left toe wound and left foot cellulitis and is being admitted for possible sepsis. Possible sepsis POA iso left foot cellulitis Patient presenting with open wound of left great toe and cellulitis of left foot At presentation: tachycardic 90-100s and intermittent tachypnea, but no leukocytosis or fevers, lactate normal Follow blood cultures, Lt foot cx w/ MRSA IV antibiotics as below c/w ivf. Open wound of left great toe Cellulitis of left foot Failed outpatient therapy with bactrim and clindamycin Labs revealed no leukocytosis, normal lactate, normal calcitonin but elevated ESR (55) and CRP (14) Foot x-ray without evidence of fracture or osteomyelitis with medial left forefoot soft tissue swelling MRI Lt foot: No evidence of osteomyelitis. Diffuse dorsal cellulitis. Soft tissue ulcer dorsal to the 1st proximal phalanx with shallow, fluid-filled sinus tract, not extending to bone. A1c 5.6 Received daptomycin and Unasyn in the ED - unasyn added due to wound exposure to dog licking per ER provider Follow wound culture and blood cultures Continue daptomycin 10/14 CPK 10/15 was 83, repeat cpk in wero. Ortho on board, s/p bedside I and D Lt foot 10/15 and operative debridement 10/16. Wound Cx growing staph. ID evaled, c/w iv dapto for now, change to linezolid at dc to complete 14 d therapy (10/16-10/29/24). MRSA decolonization after completion of antibiotic therapy as per 10/17 ID note. Hypothyroidism: Continue levothyroxine ADHD: Continue methylphenidate Depression: Continue bupropion and citalopram DVT Prophylaxis: SCDs Code Status: FULL CODE PCP: Martha Felix Admission and Anticipated Discharge Date Admission Date: October 14, 2024 Subjective Patient was seen and examined at bedside. Patient was sitting up in chair, working in laptop, on room air, NAD. Patient reports eating okay, moving bowels okay, denies any new medical issues. Physical Exam Physical Exam: General/Psych: WD/WN, NAD, conversing easily, euthymic affect Head: normocephalic, atraumatic Eyes: normal inspection, PERRL, conjunctivae pink, anicteric sclerae ENT: external ear and nose normal, oropharynx normal Neck: normal visual inspection, trachea midline, no thyromegaly Respiratory: normal respiratory effort, lungs clear to auscultation, no wheeze/rales/rhonchi, no accessory muscle use Cardiovascular: regular rate and rhythm, no murmur/rub/gallop, no JVD Extremities: no cyanosis or clubbing, normal peripheral pulses, no BLE edema Abdomen/GI: normal bowel sounds, soft, nontender, no hepatosplenomegaly Neurologic/MSK: A+Ox3, CN's II-XI intact bilaterally, motor strength 5/5, moves all extremities Skin: no rashes, normal color, warm and dry.Lt foot w/ dressing c/d/i, distal NV status wnl. Results & Data Results & Data Vital Signs (Past 12 Hours) Vital Signs Temp Pulse Pulse Resp BP Pulse Ox O2 Del Method 10/17/24 15:03 36.8 C 80 16 127/83 97 Room Air 10/17/24 11:39 36.9 C 76 15 132/89 97 Room Air 10/17/24 08:17 36.5 C 69 16 121/82 95 Room Air
[2024-10-18 07:00] LABS: Hematocrit (blood only) 42.5 % (37.0-47.0); Hemoglobin 13.3 g/dl (12.0-16.0); Mean Corpuscular Hemoglobin 27.4 pg (25.0-34.0); Mean Corpuscular Volume 87.6 fL (80.0-100.0); Platelet Count 307 K/uL (130-400); RDW Standard Deviation 43.8 fL (36.4-46.3); Red Blood Count 4.85 M/uL (4.20-5.40); White Blood Count 8.24 K/ul (4.8-10.8)
[2024-10-18 07:23] LABS: Anion Gap 8.0 (3-11); Blood Urea Nitrogen 15.0 mg/dl (6-23); Calcium 9.0 mg/dl (8.6-10.3); Carbon Dioxide 29.0 mmol/L (21-32); Chloride 105.0 mmol/L (98-107); Creatine Kinase 42.0 U/L (26-192); Creatinine Clr Calc Pharmacy 88.1 ml/min; Glucose 86.0 mg/dl (70-99(Fasting)); Potassium 4.0 mmol/L (3.5-5.1); Sodium 142.0 mmol/L (136-145)
[2024-10-18 07:32] VITALS: BP 116/80; PULSE 62; TEMP 97.7; O2SAT 95
--- NOTE | 2024-10-18 09:10 | Orthopedic Progress Note ---
Date of Service October 18, 2024 Assessment & Plan (1) Open wound of left great toe: (2) Cellulitis of left foot: Plan Postoperative day 2 status post irrigation debridement of left great toe wound. Overall, patient is doing well. Her pain is well-controlled. Her intraoperative cultures have grown MRSA. ID recs appreciated CRP from 14 to 4 s/p I+D Heel weightbearing only left lower extremity ortho stable for d/c. will follow up on thursday of this week in the office patient to do at home dressing changes daily with betadine soaked adaptic, 4x4s, rolled gauze, giovanny wrap. will require home dressing chage supplies: betadine swabs, adaptic, 4x4s, madi wrap, giovanny wrap Admission and Anticipated Discharge Date Admission Date: October 14, 2024 Subjective Postoperative day #2. Patient doing well. Notes her toe feels good. Has noticed the redness continues to improve. Physical Exam Physical Exam: Dressings removed today and wound examined. Erythema from prior is markedly improved. Wound edges are well-approximated. No signs of drainage. Results & Data Vital Signs (Past 12 Hours) Vital Signs Temp Pulse Resp BP Pulse Ox O2 Del Method 10/18/24 07:31 36.5 C 62 16 116/80 95 Room Air
--- NOTE | 2024-10-18 12:55 | Discharge Summary ---
Date of Service October 18, 2024 Admission HPI Per Admitting Provider 54 year old female with PMH significant for hypothyroidism, depression, and ADHD who presented to the ED on 10/14/2024 with a left toe wound. Patient reports that she got a bug bite on Thursday evening that initially had a white head. She attempted to pop the bug bite with a pimple popper but was unsuccessful. Then the white head turned brown and started to swell and get warm. She was seen in Family Practice on Thursday where she was prescribed bactrim and a wound culture was obtained which revealed MRSA. The wound continued to worsen and at a follow up appointment yesterday she was also prescribed clindamycin. This morning, she noted no improvement in the wound and sent a picture to her PCP who recommended she seek evaluation in our ED. She denies fevers, chills, chest pain, SOB, abdominal pain, vomiting, diarrhea, dysuria, weakness. She notes nausea but attributes that to the oral antibiotics. Admission Exam Per Admitting Provider General/Psych: WD/WN, sitting up in bed, NAD, conversing easily, euthymic affect Head: normocephalic, atraumatic Eyes: normal inspection, PERRL, conjunctivae pink, anicteric sclerae ENT: external ear and nose normal, oropharynx normal Neck: normal visual inspection, trachea midline, no thyromegaly Respiratory: normal respiratory effort, lungs clear to auscultation, no wheeze/rales/rhonchi, no accessory muscle use Cardiovascular: regular rate and rhythm, no murmur/rub/gallop, no JVD Extremities: no cyanosis or clubbing, normal peripheral pulses, no BLE edema Abdomen/GI: normal bowel sounds, soft, nontender, no hepatosplenomegaly Neurologic/MSK: A+Ox3, CN's II-XI intact bilaterally, motor strength 5/5, moves all extremities Skin: no rashes, normal color, warm and dry; see picture of toe wound in ER visit note by Jag Palma Principal Diagnosis Possible sepsis POA iso left foot cellulitis Open wound of left great toe Cellulitis of left foot Discharge Exam General/Psych: WD/WN, NAD, conversing easily, euthymic affect Head: normocephalic, atraumatic Eyes: normal inspection, PERRL, conjunctivae pink, anicteric sclerae ENT: external ear and nose normal, oropharynx normal Neck: normal visual inspection, trachea midline, no thyromegaly Respiratory: normal respiratory effort, lungs clear to auscultation, no wheeze/rales/rhonchi, no accessory muscle use Cardiovascular: regular rate and rhythm, no murmur/rub/gallop, no JVD Extremities: no cyanosis or clubbing, normal peripheral pulses, no BLE edema Abdomen/GI: normal bowel sounds, soft, nontender, no hepatosplenomegaly Neurologic/MSK: A+Ox3, CN's II-XI intact bilaterally, motor strength 5/5, moves all extremities Skin: no rashes, normal color, warm and dry.Lt foot w/ dressing c/d/i, distal NV status wnl. Discharge Data Allergies Allergy/AdvReac Type Severity Reaction Status Date / Time No Known Allergies Allergy Mild Unverified 10/14/24 16:31 Consultations 10/14/24 16:26 ED Decision to Admit Stat 10/14/24 20:47 Consult General Surgery Routine 10/14/24 21:21 Consult Orthopedic Surgery Routine 10/16/24 16:22 Consult Infectious Diseases Routine Procedures Performed Operation Date: 10/16/24 12:00 Actual Procedures p Incision and Drainage Left Great Toe(Left) - Reginald Al DO Ordered Studies 10/14/24 19:44 MRI Foot [MR foot LT w/o con] Urgent Hospital Course (1) Open wound of left great toe: (2) Cellulitis of left foot: (3) Hypothyroidism: (4) Attention deficit disorder without hyperactivity: (5) Moderate episode of recurrent major depressive disorder: Plan 54 year old female with PMH significant for hypothyroidism, depression, and ADHD who presented to the ED on 10/14/2024 with a left toe wound and left foot cellu litis and is being admitted for possible sepsis. Possible sepsis POA iso left foot cellulitis Patient presenting with open wound of left great toe and cellulitis of left foot At presentation: tachycardic 90-100s and intermittent tachypnea, but no leukocytosis or fevers, lactate normal Sepsis resolved. Antibiotics as below. Open wound of left great toe Cellulitis of left foot Failed outpatient therapy with bactrim and clindamycin Labs revealed no leukocytosis, normal lactate, normal calcitonin but elevated ESR (55) and CRP (14) Foot x-ray without evidence of fracture or osteomyelitis with medial left forefoot soft tissue swelling MRI Lt foot: No evidence of osteomyelitis. Diffuse dorsal cellulitis. Soft tissue ulcer dorsal to the 1st proximal phalanx with shallow, fluid-filled sinus tract, not extending to bone. A1c 5.6 Received daptomycin and Unasyn in the ED - unasyn added due to wound exposure to dog licking per ER provider Continue daptomycin 10/14 CPK 10/15 was 83, repeat CPK nl Ortho on board, s/p bedside I and D Lt foot 10/15 and operative debridement 10/16. Wound Cx growing staph. ID evaled, c/w iv dapto for now, change to linezolid at nm to complete 14 d therapy (10/16-10/29/24). MRSA decolonization after completion of antibiotic therapy as per 10/17 ID note. Pt educated on this 10/18, she voiced understanding. Hypothyroidism: Continue levothyroxine ADHD: Continue methylphenidate Depression: Continue bupropion and citalopram DVT Prophylaxis: SCDs Code Status: FULL CODE PCP: Martha Felix Patient is being discharged to home with following instructions at the point of discharge: Follow-up with your primary care physician within a week time and likely you will need labs CBC/CMP/magnesium/phosphorus. Continue with heel weightbearing only in the left lower extremity, follow-up with orthopedics coming Thursday. You will be discharged on antibiotic, complete the course as prescribed. As discussed at bedside, once you finish antibiotic course follow up on the MRSA decolonization as outlined below. Continue with home dressing changes daily with betadine soaked adaptic, 4x4s, rolled gauze, giovanny wrap. Follow up on final results of blood culture during your PCP visit within a week time upon discharge. Staph/MRSA decolonization protocol Perform decolonization of all household members simultaneously. (1) Nasal decolonization: mupirocin ointment (2%) - Apply twice a day to each nostril (each household member should have a separate one) for 5 days (2) Topical body decolonization: chlorhexidine gluconate (Hibiclens) (2% or 4% solution) washes - Wet body. Turn off water and put Hibiclens all over body from the neck down, with special attention to underarms and groin. Wait 3-5 minutes, then wash off Hibiclens. Do this daily for 5 days. - Bathroom: Daily Clorox bleach to shower/bathroom. - Gym: Ok to go to gym, but wash off equipment before and after use. Do not stay in sweaty clothes; immediately shower after exercise. Do not re-wear sweaty clothes. - Laundry: Wash towels/washcloths/sheets/underwear/sweaty clothes after each use in hot water and color-safe bleach. Do not share towels or washcloths. - Personal hygiene products: Throw out deodorant and razors now. Avoid loofahs. Only use razors for 1 week at a time. If you develop cellulitis (skin infection), get rid of deodorant and razors again. Take you medications as prescribed. Please make sure that you are able to get your medications today by calling your pharmacy before you leave the hospital so that your treatment continuity is not broken. Home Health Attestation I certify that this patient is under my care and that I, or a physicians senior office support assistant sosa working with me, had a face to-face encounter that meets the home health [id number] encounter requirements with this patient. The encounter with the patient was in whole, or in part, for the following med ical condition, which is the primary reason for home health care (list medical condition): I certify that, based on my findings, the following services are medically necessary home health services: My clinical findings support the need for the above services because: Further, I certify that my clinical findings support that this patient is homebound (i.e. absences from home require considerable and taxing effort and are for medical reasons or [facility] or infrequently or of short duration when for other reasons) because: Certification for Home Health Services: Based on the above findings, I certify that this patient is confined to the home and needs intermittent penitentiary care, physical therapy and/or speech therapy or continues to need occupational therapy. The patient is under my care, and I have initiated the establishment of the plan of care. This patient will be followed by a physician who will periodically review the plan of care. Total Time Total Time Spent Total Time Spent (In Minutes): 45 Discharge Plan Discharge Items Patient Disposition: Home - Self-Care Reason For Visit: TOE INFECTION Discharge Diagnosis: Possible sepsis POA iso left foot cellulitis Open wound of left great toe Cellulitis of left foot Condition on Discharge: Good Activity: As commented below Activity Comment: Heel weightbearing only left lower extremity Non-emergency contact: Primary Care Provider Call non-emergency contact if: you have any medication questions and your symptoms worsen Follow-up/Referrals: Martha Felix, [Primary Care Provider] - 10/24/24 1:00 pm (Date & Time 10/24/2024 1:00 PM Provider: Dilcia Monae PA-C [facility] ) Diet: Regular Addtl Attending Provider Instructions: Follow-up with your primary care physician within a week time and likely you will need labs CBC/CMP/magnesium/phosphorus. Continue with heel weightbearing only in the left lower extremity, follow-up with orthopedics coming Thursday. You will be discharged on antibiotic, complete the course as prescribed. As discussed at bedside, once you finish antibiotic course follow up on the MRSA decolonization as outlined below. Continue with home dressing changes daily with betadine soaked adaptic, 4x4s, rolled gauze, giovanny wrap. Follow up on final results of blood culture during your PCP visit within a week time upon discharge. Staph/MRSA decolonization protocol Perform decolonization of all household members simultaneously. (1) Nasal decolonization: mupirocin ointment (2%) - Apply twice a day to each nostril (each household member should have a separate one) for 5 days (2) Topical body decolonization: chlorhexidine gluconate (Hibiclens) (2% or 4% solution) washes - Wet body. Turn off water and put Hibiclens all over body from the neck down, with special attention to underarms and groin. Wait 3-5 minutes, then wash off Hibiclens. Do this daily for 5 days. - Bathroom: Daily Clorox bleach to shower/bathroom. - Gym: Ok to go to gym, but wash off equipment before and after use. Do not stay in sweaty clothes; immediately shower after exercise. Do not re-wear sweaty clothes. - Laundry: Wash towels/washcloths/sheets/underwear/sweaty clothes after each use in hot water and color-safe bleach. Do not share towels or washcloths. - Personal hygiene products: Throw out deodorant and razors now. Avoid loofahs. Only use razors for 1 week at a time. If you develop cellulitis (skin infection), get rid of deodorant and razors again. Take you medications as prescribed. Please make sure that you are able to get your medications today by calling your pharmacy before you leave the hospital so that your treatment continuity is not broken. Pending Studies at Discharge: Yes Stand-Alone Forms: My [facility], Smoking Cessation Medications and DC Order Prescriptions: New linezolid 600 mg tablet 600 mg PO BID 12 Days Qty: 24 0RF Probiotic 3 billion cell capsule 3,000 mmu cells PO DAILY 14 Days Qty: 14 0RF Rx Instructions: administer with a meal mupirocin 2 % ointment 1 applic topical BID Qty: 15 0RF Rx Instructions: Apply twice a day to each nostril for 5 days chlorhexidine gluconate 2 % liquid 1 applic topical DAILY Qty: 118 0RF Rx Instructions: Wet body. Turn off water and put Hibiclens all over body from the neck down, with special attention to underarms and groin. Wait 3-5 minutes, then wash off Hibiclens. Do this daily for 5 days. Continued levothyroxine 150 mcg tablet 150 mcg PO DAILYBB Rx Instructions: take on an empty stomach 30 minutes prior to breakfast and other meds methylphenidate HCl 54 mg tablet extended release 24hr 54 mg PO QAM citalopram 40 mg tablet 40 mg PO QAM bupropion HCl 150 mg tablet sustained-release 12 hr 150 mg PO QAM cetirizine [Zyrtec] 10 mg Tablet 10 mg PO QAM Probiotic 10 billion cell Capsule 10,000 mmu cells PO DAILY Discontinued sulfamethoxazole-trimethoprim 800-160 mg tablet 1 tab PO [facility] Rx Instructions: take until gone clindamycin HCl 150 mg capsule 450 mg PO TID Rx Instructions: start 10/13/24 and end 10/23/24 Discharge Orders: Discharge Order (Routine); Ordered 10/18/24 Ordered By: Finesse Ozuna Admission Data Admit Date/Time: 10/14/24 18:43 Attending Provider: Finesse Ozuna Admit Provider: Servando Adorno Primary Care Provider: Martha Felix Other Providers: Servando Adorno; Tima Sanchez; Reginald Al
--- NOTE | 2024-10-19 11:54 | Coding Query ---
DEBRIDEMENT DOCUMENTATION To promote full compliance with coding requirements relating to patient care, physician participation is requested in all cases of cap inspector uncertainty. Please assist us with the question(s) below: Please place an X in the parenthesis (x). If other, please document the finding: Regarding the Operative Report for 10/16/24: Type of Debridement: (x) Excisional Debridement- Cutting away necrotic, devitalized tissue or slough to the level of viable tissue using a sharp instrument (i.e. scalpel, scissors, etc.) ( ) Non Excisional Debridement- The removal of necrotic, devitalized tissue or slough by means of scraping, mechanical brushing, flushing, or washing (i.e. irrigation,whirlpool);minor removal of loose fragments. ( ) Other (please specify): Depth of Debridement: ( ) Skin (x) Skin and Subcutaneous Tissue ( ) Skin, Subcutaneous Tissue and Muscle ( ) Skin, Subcutaneous Tissue, Muscle and Bone ( ) Other (please specify): Thank you Linda MCKEON
== END 2024-10-18 13:27 | disposition home or self-care (01) | DRG 854 ==
LOC: ED 14:40 → 3W 18:43 → SUATTDRO 18:43 → 3W 20:49